=== PATIENT | female | born 1980 | race Caucasian/White ===

== ENCOUNTER 2017-05-09 10:31 | Inpatient (IN) | payer MEDICAID ==
[~2017-05-09] VITALS: Ht 170.2 cm; Wt 67.1 kg
[2017-05-09 10:53] LABS: BASOPHILS % (AUTO) 1.2 % (0.0-2.0); EOSINOPHILS % (AUTO) 3.2 % (1.0-6.0); HEMATOCRIT 40.6 % (36-46); HEMOGLOBIN 13.8 g/dL (12.0-16.0); LYMPHOCYTES # (AUTO) 1.8 K/uL (1.0-4.8); LYMPHOCYTES % (AUTO) 29.6 % (22.0-44.0); MEAN CORPUSCULAR HEMOGLOBIN 31.4 pg (26.0-34.0); MEAN CORPUSCULAR VOLUME 92 fL (80-100); MONOCYTES # (AUTO) 0.5 K/uL (0.1-1.0); MONOCYTES % (AUTO) 7.3 % (2.0-9.0); NEUTROPHILS # (AUTO) 3.6 K/uL (1.8-7.7); NEUTROPHILS % (AUTO) 58.7 % (40.0-70.0); PLATELET COUNT (AUTO) 241 K/uL (150-450); RED BLOOD CELL COUNT(AUTO) 4.39 MIL/uL (4.00-5.20); RED CELL DISTRIBUTION WIDTH 13.6 % (11.5-14.5)
[2017-05-09 10:57] LABS: ANION GAP 5 mmol/L (8-16); CALCIUM, TOTAL 8.6 mg/dL (8.8-10.5); CARBON DIOXIDE 27 mmol/L (22-29); CHLORIDE 106 mmol/L (98-107); CREATININE 0.78 mg/dL (0.60-1.30); GLOMERULAR FILTR. RATE CALC > 60 mL/min (>60); GLUCOSE,RANDOM 99 mg/dL (70-110); POTASSIUM 3.5 mmol/L (3.5-5.1); SODIUM SERUM 138 mmol/L (136-145); UREA NITROGEN, BLOOD 18 mg/dL (7-18)
[2017-05-09 11:02] LABS: ALANINE AMINOTRANSFERASE 24 U/L (12-78); ALBUMIN 3.8 g/dL (3.4-5.0); ALKALINE PHOSPHATASE 52 U/L (46-116); ASPARTATE AMINOTRANSFERASE 17 U/L (15-37); BILIRUBIN,TOTAL 0.4 mg/dL (0.1-1.0)
[2017-05-09] MEDS ORDERED: HALOPERIDOL 5 MG TABLET PO PRN (12:00)
[2017-05-09] MEDS ORDERED: LORazepam 1 MG TABLET PO PRN (12:00)
[2017-05-09] MEDS ORDERED: ZOLPIDEM TARTRATE 10 MG TABLET PO PRN (12:00)
[2017-05-09] MEDS ORDERED: LORazepam 1 MG TABLET PO ONE (12:30)
[2017-05-09] MEDS ORDERED: IVERMECTIN 3 MG TABLET PO ONE (12:30)
[2017-05-09] MEDS ORDERED: DiphenhydrAMINE HCL 25 MG CAPSULE PO ONE (12:30)
[2017-05-09] MEDS ORDERED: HALOPERIDOL 5 MG TABLET PO ONE (12:30)
[2017-05-09 18:54] VITALS: BP 100/58
[2017-05-09] MEDS ORDERED: ACETAMINOPHEN 325 MG TABLET PO PRN (20:15)
[2017-05-09] MEDS ORDERED: IBUPROFEN 400 MG TABLET PO PRN (20:15)
[2017-05-10 07:11] LABS: CHOL/HDL RATIO 2.1 (3.9-5.7)
[2017-05-10 08:39] VITALS: BP 130/79
[2017-05-10 16:09] VITALS: BP 116/76
[2017-05-10] MEDS: DIVALPROEX SODIUM 500 MG DR TABLET PO SCH (17:47)
[2017-05-10] MEDS: RisperiDONE 1 MG TABLET PO SCH (17:47)
[2017-05-11] MEDS: RisperiDONE 1 MG TABLET PO SCH ×2 (08:08→16:37)
[2017-05-11] MEDS: DIVALPROEX SODIUM 500 MG DR TABLET PO SCH ×2 (08:08→16:27)
[2017-05-11 08:54] VITALS: BP 118/74
[2017-05-11] MEDS ORDERED: DiphenhydrAMINE HCL 25 MG CAPSULE PO ONE (16:45)
[2017-05-11 17:00] VITALS: BP 125/78
[2017-05-11] MEDS: NYSTATIN 30 GM OINTMENT TP SCH (17:56)
[2017-05-12 08:52] VITALS: BP 104/78
[2017-05-12] MEDS: DIVALPROEX SODIUM 500 MG DR TABLET PO SCH ×2 (09:07→16:40)
[2017-05-12] MEDS: RisperiDONE 1 MG TABLET PO SCH ×2 (09:07→16:41)
[2017-05-12] MEDS: NYSTATIN 30 GM OINTMENT TP SCH ×2 (09:08→16:41)
[2017-05-12 16:41] VITALS: BP 117/72
[2017-05-13] MEDS: RisperiDONE 1 MG TABLET PO SCH ×2 (08:10→16:31)
[2017-05-13] MEDS: NYSTATIN 30 GM OINTMENT TP SCH ×2 (08:10→16:31)
[2017-05-13] MEDS: DIVALPROEX SODIUM 500 MG DR TABLET PO SCH ×2 (08:10→16:31)
[2017-05-13 08:48] VITALS: BP 128/76
[2017-05-13] MEDS ORDERED: DiphenhydrAMINE HCL 25 MG CAPSULE PO ONE (12:15)
[2017-05-13 16:30] VITALS: BP 112/70
[2017-05-14 01:25] VITALS: BP 128/81
[2017-05-14 08:30] VITALS: BP 127/85
[2017-05-14] MEDS: RisperiDONE 1 MG TABLET PO SCH (08:52)
[2017-05-14] MEDS: NYSTATIN 30 GM OINTMENT TP SCH (08:52)
[2017-05-14] MEDS: DIVALPROEX SODIUM 500 MG DR TABLET PO SCH (08:52)
[2017-05-14] MEDS ORDERED: DIVA500T35 PO (08:59)
[2017-05-14] MEDS ORDERED: RISP1 PO (09:00)
[2017-05-14] MEDS ORDERED: NYST15PO3 TP (09:00)
[2017-05-14 09:45] VITALS: BP 127/85
== END 2017-05-14 14:29 | disposition home or self-care (01) | DRG 750 ==
LOC: EMS 10:34 → 3EI 12:25
PROVIDERS: ADMIT Psychiatry & Neurology Psychiatry; ATTEND Psychiatry & Neurology Psychiatry
DX: F25.9 Schizoaffective disorder, unspecified (principal); R45.851 Suicidal ideations; F29 Unspecified psychosis not due to a substance or known physiological condition; F32.9 Major depressive disorder, single episode, unspecified; D64.9 Anemia, unspecified; F10.10 Alcohol abuse, uncomplicated; F15.10 Other stimulant abuse, uncomplicated
CPT/HCPCS: 87081; 99285; G0480